=== PATIENT | male | born 1980 ===

== ENCOUNTER → 2017-09-01 | Outpatient (CLI) | payer OTHER | LOC: GIMAGING 11:03 | PROVIDERS: ATTEND Nurse Practitioner Family | DX: S49.92XA Unspecified injury of left shoulder and upper arm, initial encounter (principal); W11.XXXA Fall on and from ladder, initial encounter; Y92.019 Unspecified place in single-family (private) house as the place of occurrence of the external cause | CPT/HCPCS: 73030-PO ==